=== PATIENT | male | born 1985 ===

== ENCOUNTER 2024-05-25 14:24 | Emergency (ER) | payer OTHER, SELFPAY ==
[2024-05-25 14:26] VITALS: BP 154/110
--- NOTE | 2024-05-25 15:12 | ED.GENMED ---
History of Present Illness
General
Chief Complaint: Skin Surface Trauma
Source: patient
Time Seen by Provider: 05/25/24 14:37
History of Present Illness
History of Present Illness:
38-year-old male present emergency department for evaluation after sustaining laceration to the right thumb. Patient is right-hand dominant, tetanus is up-to-date. No other injuries were sustained.
Past History
Past History
ED Past Medical History: None
ED Past Surgical History: Orthopedic
Social History
Tobacco: Non-smoker
Alcohol: None
Drug: None
Personal:
Living: with family
Review of Systems
Review of Systems
All Other Systems: ROS reviewed and negative except as documented in HPI and ROS
Phy Exam
Physical Exam
Physical Exam:
GENERAL: Alert , in no apparent distress
EYE: conjunctiva clear
Head: Normocephalic atraumatic
NECK: Supple,
ENT: mmm.
LUNGS: no acute respiratory distress
NEUROLOGICAL: Alert and oriented
SKIN: Warm and dry, 1-1/2 cm V-shaped flap laceration along the lateral aspect of the right thumb. Bleeding controlled with pressure. Patient has full range of motion of the right thumb without any difficulty. Sensation is grossly intact to light
MUSCULOSKELETAL: well perfused.
PSYCH: Normal and appropriate interaction.
Scores
Heart Failure Risk
Heart Failure Risk Score: Not Applicable
Heart Score for Chest Pain Patients
STEMI patient?: Not applicable
Withdrawal Assessment of Alcohol
Withdrawal Assessment Completed?: Not applicable
Course
Vital Signs
Initial and Last Documented VS:
Initial Vital Signs
Temp Pulse Resp BP Pulse Ox
97.9 F 100 20 154/110 96
05/25/24 14:26 05/25/24 14:26 05/25/24 14:26 05/25/24 14:26 05/25/24 14:26
Last Documented Vital Signs
Temp Pulse Resp BP Pulse Ox
97.9 F 100 20 154/110 96
05/25/24 14:26 05/25/24 14:26 05/25/24 14:26 05/25/24 14:26 05/25/24 14:26
Procedures
Laceration Closure
Right Thumb:
Status of Wound: clean
Size of Wound in cm: 1.5
Description of Wound Edges: sharp
Preparation: cleaned with saline
Anesthesia: Digital-Regional
Revision/Debridement: routine- no revision
Type of Closure: layered closure
Skin Closure Material: 5-0 nylon (5) and 5-0 vicryl (1)
Number of sutures: 6
MDM/Problems Addressed
MDM/Problems Addressed:
Laceration repaired without difficulty as above. Motrin/Tylenol as needed for pain. Suture removal in 10 to 12 days. Patient aware of return precautions.
*Pulse Oximetry
Patient hypoxic: no
*Critical Care Note
Total Time (30-74mins, 75-104mins- exclusive of procedures): Not Applicable
ED Attending Note
-
Portions of this chart may have been created with voice recognition software.� Occasional wrong word or��sound alike� substitutions may have occurred due to the inherent limitations of voice recognition software.
Discharge Plan
Departure
Patient Disposition: Home (Routine Discharge)
Date of Disposition: 05/25/24
Time of Disposition: 15:12
Patient with high blood pressure during this ER visit?: Yes
Discharge Problem:
Laceration of right thumb
Instructions: Laceration Repair With Stitches (DC)
Activity Restrictions/Additional Instructions:
Suture removal in 10-12 days
Interventions
Interventions:
*Risk Screen - Suicide Last Done: 05/25/24 14:34
*General Assessment Last Done: 05/25/24 14:34
*Neglect/Abuse Screening Last Done: 05/25/24 14:34
ED- Fall Risk Assessment Last Done: 05/25/24 15:24
*ED COVID-19 Vaccine History Last Done: 05/25/24 14:34
*Nursing Disposition Last Done: 05/25/24 15:24
ED-Skin Assessment Last Done: 05/25/24 14:34
Discharge Date and Time
Discharge Date/Time: 05/25/24 15:24
Print Language: [place]
== END 2024-05-25 15:24 | disposition home or self-care (01) ==
LOC: EMR 14:24
PROVIDERS: EMERGENCY PHYSICIAN Emergency Medicine; FAMILY PHYSICIAN Internal Medicine
DX: S61.011A Laceration without foreign body of right thumb without damage to nail, initial encounter (principal); X58.XXXA Exposure to other specified factors, initial encounter
CPT/HCPCS: 12041; 99282